=== PATIENT | female | born 1945 | race Caucasian/White ===

== ENCOUNTER 2018-04-02 10:42 | Emergency (ER) | payer MEDICARE ==
[~2018-04-02] VITALS: Ht 162.6 cm; Wt 68.6 kg
--- NOTE | 2018-04-02 12:04 | NUR ---
obtained urine in toilet hat
[2018-04-02 12:23] LABS: CLARITY,URINE CLEAR (Clear); COLOR,URINE YELLOW (Yellow); GLUCOSE, URINE NEGATIVE (Neg); KETONES,URINE >=80 mg/dl (Neg); LEUKOCYTE ESTERASE ,URINE NEGATIVE (Neg); NITRITES, URINE NEGATIVE (Neg); OCCULT BLOOD,URINE LARGE (Neg); PROTEIN,URINE TRACE mg/dl (Neg); UROBILINOGEN,URINE 0.2 E.U/dL (0.2-1.0)
[2018-04-02 12:28] LABS: UA COLLECTION TYPE VOIDED
[2018-04-02 12:29] LABS: BACTERIA,URINE NONE SEEN /HPF (Neg); MUCUS STRANDS FEW /LPF (Neg); SQUAMOUS EPITHELIAL CELL,UR FEW /LPF (FEW); WBC,URINE 0-4 /HPF (0-4)
[2018-04-02 12:34] LABS: BASOPHILS % (AUTO) 0.2 % (0-1); EOSINOPHILS % (AUTO) 0.1 % (0-6); HEMATOCRIT 43.6 % (35.0-45.0); HEMOGLOBIN 14.4 g/dl (12.0-16.0); LYMPHOCYTES # (AUTO) 1.2 X10'3 (1.1-4.8); MEAN CORPUSCULAR HGB CONC 32.9 g/dL (33.0-36.5); MEAN CORPUSCULAR VOLUME 88.2 FL (78-98); MEAN PLATELET VOLUME 8.9 FL (7.4-10.4); MONOCYTES # (AUTO) 0.7 X10'3 (0-0.9); MONOCYTES % (AUTO) 6.3 % (2-12); NEUTROPHILS # (AUTO) 9.6 X10'3 (1.8-7.7); NEUTROPHILS % (AUTO) 83.4 % (42-75); PLATELET COUNT 249 X10'3 (140-440); RED BLOOD COUNT 4.95 X10'6 (4.20-5.60); RED CELL DISTRIBUTION WIDTH 12.8 % (11.5-14.5); WHITE BLOOD COUNT 11.5 X10'3 (4.5-11.0)
[2018-04-02 12:51] LABS: INR 1.3 INR; PROTHROMBIN TIME 12.6 SECONDS (9.0-12.0)
[2018-04-02 12:56] LABS: ALANINE AMINOTRANSFERASE 26 U/L (12-78); ALBUMIN 3.7 G/DL (3.4-5.0); ALBUMIN/GLOBULIN RATIO 1.1 (1.1-1.5); ALKALINE PHOSPHATASE 103 IU/L (46-116); ANION GAP 13 (8-16); ASPARTATE AMINO TRANSFERASE 18 U/L (10-37); BILIRUBIN,TOTAL 0.3 MG/DL (0.1-1.0); BLOOD UREA NITROGEN 19 MG/DL (7-18); BUN/CREATININE RATIO 25.7 (6.6-38.0); CALCIUM 9.3 MG/DL (8.5-10.1); CHLORIDE 99 MMOL/L (99-107); CREATININE 0.74 MG/DL (0.40-0.90); GLUCOSE 86 MG/DL (70-104); LIPASE 87 U/L (73-393); POTASSIUM 3.2 MMOL/L (3.5-5.1); SODIUM 137 MMOL/L (135-145); TOTAL CARBON DIOXIDE 25.4 MMOL/L (24-32); TOTAL PROTEIN 7.2 G/DL (6.4-8.2); eGFR 77 ML/MIN
[2018-04-02] MEDS ORDERED: PHE12.5T PO (15:16)
[2018-04-02] MEDS ORDERED: potassium Cl 20 mEq SR tablet PO STA (15:20)
[2018-04-02 15:35] VITALS: BP 167/83
== END 2018-04-02 15:44 | disposition home or self-care (01) ==
LOC: ER 10:42
DX: E87.6 Hypokalemia (principal); R19.7 Diarrhea, unspecified; I10 Essential (primary) hypertension; E78.00 Pure hypercholesterolemia, unspecified; F32.9 Major depressive disorder, single episode, unspecified; F17.200 Nicotine dependence, unspecified, uncomplicated; Z90.49 Acquired absence of other specified parts of digestive tract; Z90.710 Acquired absence of both cervix and uterus; Z88.8 Allergy status to other drugs, medicaments and biological substances; Z79.899 Other long term (current) drug therapy
CPT/HCPCS: 36415; 80053; 81001; 83690; 85025; 85610; 99283

== ENCOUNTER 2025-02-08 13:15 | Outpatient (CLI) | payer MEDICARE ==
[~2025-02-08 13:15] MED LIST: PROM12.512 PO
--- NOTE | 2025-02-08 14:39 | RADIOLOGY REPORT ---
EXAM: MR MRI LOWER EXTREMITY LEFT INDICATION: DISORDER OF LIGAMENT, LEFT FOOT TECHNIQUE: Multiplanar and multisequence MR imaging of the left ankle was performed in the absence of gadolinium contrast. COMPARISON: None FINDINGS: [MEDIAL ANKLE]: Intact posterior tibialis, flexor hallucis longus, and flexor digitorum tendons.. Intact deltoid ligament. Intact spring ligament complex. [LOW LATERAL ANKLE]: Edema along the margins of the anterior talofibular ligament and fluid primarily of the anterolateral gutter and consideration for sequelae of prior low-grade injury. Intact peroneal brevis and longus tendons without tenosynovitis. [HIGH LATERAL ANKLE]: Intact anterior and posterior inferior tibiofibular ligaments. [ANTERIOR ANKLE]: Intact anterior tibialis, extensor digitorum longus, and extensor hallucis longus tendons. [POSTERIOR ANKLE]: Thickening of the central cord of the plantar fascia with underlying prominent osteitis of the posterior inferior calcaneal tuberosity. Possible underlying partial tearing of the central cord of the plantar fascia origin versus severe plantar fasciitis. Achilles tendon is intact. [MIDFOOT]: Normal. [BONES]: No acute fracture, osseous contusion, or aggressive osseous lesion. [MUSCLES]: Normal. [NEUROVASCULAR]: Normal tarsal tunnel [OTHER]: None IMPRESSION: 1. Thickening of the central cord of the plantar fascia with underlying prominent osteitis of the posterior inferior calcaneal tuberosity. 2. Possible underlying partial tearing of the central cord of the plantar fascia origin versus severe plantar fasciitis. 3. Edema along the margins of the anterior talofibular ligament and fluid primarily of the anterolateral gutter and consideration for sequelae of prior low-grade injury.
== END 2025-02-08 23:59 | disposition home or self-care (01) ==
LOC: MRI02 13:15
PROVIDERS: ATTEND Physician Assistant Surgical
DX: M79.672 Pain in left foot (principal); M24.275 Disorder of ligament, left foot; R60.0 Localized edema
CPT/HCPCS: 73718